=== PATIENT | male | born 1965 | race African-American/Black ===

== ENCOUNTER → 2019-06-14 | Outpatient (REF) ==
--- NOTE | 2019-06-15 01:51 | REP ---
Clinical: Lower back pain . Technique: AP, lateral, and coned-down views. Findings: Alignment and lordosis is maintained. The vertebral bodies including transverse process and spinous processes are intact and there is no evidence for acute fracture / compression injury or subluxation. Early moderate degenerative changes include endplate sclerosis, minimal disc space narrowing, early marginal spurring, and hypertrophic facet changes. Impression: Early moderate multilevel degenerative spondylosis. Electronically Signed by Franck Kaey MD 06/15/2019 01:43 A
--- NOTE | 2019-06-15 01:54 | REP ---
Clinical: Pain. Technique: AP, lateral, bilateral oblique views of the right knee. Findings: Moderate tricompartmental osteoarthritic degenerative changes include subchondral sclerosis, joint space narrowing, and osteophytosis. Lateral view demonstrates bulky osteophytes forming along the inferior margin of the patella consistent with associated patellar tendinopathy. No acute fracture or dislocation. No definite effusion. Impression: Moderate tricompartmental osteoarthritic degenerative changes. Prominent bulky osteophyte formation along the inferior margin of the patella. Electronically Signed by Franck Kaye MD 06/15/2019 01:45 A
== END ==
LOC: M SMT 12:06
PROVIDERS: ATTEND Internal Medicine
DX: Z02.71 Encounter for disability determination (principal)